=== PATIENT | female | born 1965 | race American Indian/Alaskan Native ===

== ENCOUNTER 2016-11-15 06:33 | Emergency (ER) | payer MEDICARE ==
[2016-11-15 06:47] VITALS: BP 154/108
[2016-11-15 07:09] LABS: Basophils % (Auto) 0.2 % (0.0-1.8); Eosinophils % (Auto) 2.8 % (0.0-4.3); Hematocrit 26.4 % (30.3-42.9); Hemoglobin 8.4 gm/dl (10.1-14.3); Mean Corpuscular HGB Conc 32 % (30-34); Mean Corpuscular Hemoglobin 30 pg (28-32); Mean Corpuscular Volume 93 fl (79-97); Platelet Count 354 K/mm3 (140-440); Red Blood Count 2.84 M/mm3 (3.65-5.03); White Blood Count 7.9 K/mm3 (4.5-11.0)
[2016-11-15 07:33] LABS: BUN/Creatinine Ratio 4.14; Calcium 8.7 mg/dL (8.4-10.2); Chloride 98.9 mmol/L (98-107); Potassium 3.9 mmol/L (3.6-5.0)
[2016-11-15 11:43] LABS: Bacteria,Urine 2+ /HPF (Negative); Bilirubin,Urine NEG (Negative); Blood,Urine LG (Negative); Ketones,Urine NEG (Negative); Leukocyte Esterase,Urine LG (Negative); Mucus,Urine FEW /HPF; Nitrite,Urine NEG (Negative); Urobilinogen,Urine < 2.0 mg/dL (<2.0)
[2016-11-15 11:52] LABS: RBC,Urine > 182.0 /HPF (0.0-6.0)
--- NOTE | 2016-11-17 10:47 | ED Elopement Review ---
ED Pt Elopement review - Results review Lab results: Laboratory Tests 11/15/16 11/15/16 11/15/16 06:55 06:55 06:55 WBC 7.9 RBC 2.84 L Hgb 8.4 L Hct 26.4 L MCV 93 MCH 30 MCHC 32 RDW 17.0 H Plt Count 354 Lymph % (Auto) 23.8 [place] % (Auto) 4.2 Eos % (Auto) 2.8 Baso % (Auto) 0.2 Lymph # 1.9 [place] # 0.3 Eos # 0.2 Baso # 0.0 Seg Neutrophils % 69.0 Seg Neutrophils # 5.4 Sodium 144 Potassium 3.9 Chloride 98.9 Carbon Dioxide 20 L Anion Gap 29 BUN 73 H Creatinine 17.6 H Estimated GFR 3 BUN/Creatinine Ratio 4.14 Glucose 108 H Calcium 8.7 Troponin T 0.020 HCG, Qual Negative Urine Color Urine Turbidity Urine pH Ur Specific [place] Urine Protein Urine Glucose (UA) Urine Ketones Urine Blood Urine Nitrite Urine Bilirubin Urine Urobilinogen Ur Leukocyte Esterase Urine WBC (Auto) Urine RBC (Auto) U Epithel Cells (Auto) Urine Bacteria (Auto) Urine Mucus 11/15/16 11/15/16 09:57 11:11 WBC RBC Hgb Hct MCV MCH MCHC RDW Plt Count Lymph % (Auto) [place] % (Auto) Eos % (Auto) Baso % (Auto) Lymph # [place] # Eos # Baso # Seg Neutrophils % Seg Neutrophils # Sodium Potassium Chloride Carbon Dioxide Anion Gap BUN Creatinine Estimated GFR BUN/Creatinine Ratio Glucose Calcium Troponin T 0.019 HCG, Qual Urine Color Yellow Urine Turbidity Cloudy Urine pH 7.0 Ur Specific [place] 1.011 Urine Protein 100 mg/dl Urine Glucose (UA) 50 Urine Ketones Neg Urine Blood Lg Urine Nitrite Neg Urine Bilirubin Neg Urine Urobilinogen < 2.0 Ur Leukocyte Esterase Lg Urine WBC (Auto) 137.0 H Urine RBC (Auto) > 182.0 U Epithel Cells (Auto) 12.0 Urine Bacteria (Auto) 2+ Urine Mucus Few - Call Back decision Pt Call Back Decision: No action required
== END 2016-11-15 09:58 | disposition left against medical advice (07) ==
LOC: ED 06:33
DX: R07.9 Chest pain, unspecified (principal); Z53.21 Procedure and treatment not carried out due to patient leaving prior to being seen by health care provider
CPT/HCPCS: 36415; 80048; 81001; 84484; 84703; 85025; 93005; 93010